=== PATIENT | female | born 1960 | race Caucasian/White ===

== ENCOUNTER 2017-06-03 08:14 | Emergency (ER) | payer OTHER, BC ==
[2017-06-03] MEDS ORDERED: HYDROmorphone 4 MG/ML Syringe IVPUSH ONE (08:22)
[2017-06-03] MEDS ORDERED: Ondansetron 4 MG/2 ML SDV IVPUSH ONE (08:24)
[2017-06-03] MEDS: Sodium Chloride 0.9% 10 ML Syringe FLUSH PRN ×3 (08:40→09:21)
[2017-06-03] MEDS ORDERED: HYDROmorphone 1 MG/ML Syringe IVPUSH ONE (08:53)
[2017-06-03] MEDS ORDERED: Bupivacaine 0.5% 10 ML SDV INJECT ONE (09:13)
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
== END 2017-06-03 11:05 | disposition home or self-care (01) ==
LOC: LL.ED 08:14
DX: S52.571A Other intraarticular fracture of lower end of right radius, initial encounter for closed fracture (principal); S52.611A Displaced fracture of right ulna styloid process, initial encounter for closed fracture; I10 Essential (primary) hypertension; E78.00 Pure hypercholesterolemia, unspecified; F32.9 Major depressive disorder, single episode, unspecified; Z72.0 Tobacco use; Z79.899 Other long term (current) drug therapy; Z88.8 Allergy status to other drugs, medicaments and biological substances; Z91.030 Bee allergy status; W18.09XA Striking against other object with subsequent fall, initial encounter; Y92.89 Other specified places as the place of occurrence of the external cause; Y99.0 Civilian activity done for income or pay
CPT/HCPCS: 25605; 73100-RT; 73110-RT; 96374; 96375; 99283; J1170; J2405; J3360; J7050

== ENCOUNTER 2021-04-17 16:27 | Emergency (ER) | payer OTHER, BC | END 2021-04-17 18:15 | disposition home or self-care (01) | LOC: SUPCPDRO 16:27 → LL.ED 16:27 | DX: S80.12XA Contusion of left lower leg, initial encounter (principal); E78.00 Pure hypercholesterolemia, unspecified; I10 Essential (primary) hypertension; Z88.8 Allergy status to other drugs, medicaments and biological substances; Z91.030 Bee allergy status; Z79.899 Other long term (current) drug therapy; W22.8XXA Striking against or struck by other objects, initial encounter; Y92.129 Unspecified place in nursing home as the place of occurrence of the external cause; Y99.0 Civilian activity done for income or pay | CPT/HCPCS: 73590-LT; 99283-25 ==

== ENCOUNTER 2022-04-23 14:00 | Emergency (ER) | payer BC, OTHER ==
[2022-04-23 15:27] LABS: ANION GAP 7.9 meq/L (7-15); CHLORIDE,CL 103 mmol/L (98-107); SODIUM,NA 139 mmol/L (136-145)
[2022-04-23 15:28] LABS: ESTIMATED GFR 95 mL/min (>=60)
[2022-04-23 15:29] LABS: CORONAVIRUS COVID-19 NAA NEGATIVE (NEGATIVE); RESPIRATORY SYNCYTIAL VIR NAA NEGATIVE (NEGATIVE)
[2022-04-23] MEDS ORDERED: Azithromycin 250 MG Tab PO STA (15:42)
== END 2022-04-23 16:05 | disposition home or self-care (01) ==
LOC: LL.ED 14:00
DX: J18.9 Pneumonia, unspecified organism (principal); E78.00 Pure hypercholesterolemia, unspecified; I10 Essential (primary) hypertension; Z87.891 Personal history of nicotine dependence; Z88.8 Allergy status to other drugs, medicaments and biological substances; Z88.4 Allergy status to anesthetic agent; Z91.030 Bee allergy status; Z20.822 Contact with and (suspected) exposure to COVID-19
CPT/HCPCS: 0241U; 36415; 80053; 85025; 86140; 99283; A9270-GY